=== PATIENT | male | born 1995 | race Caucasian/White ===

== ENCOUNTER 2020-11-19 02:18 | Emergency (ER) | payer MEDICAID ==
[~2020-11-19] VITALS: Ht 175.3 cm; Wt 67.0 kg
[2020-11-19 02:21] VITALS: BP 123/75
[2020-11-19 04:24] LABS: CLARITY URINE CLEAR (CLEAR); COLOR URINE YELLOW (YELLOW); KETONES URINE NEGATIVE (NEGATIVE); LEUKOCYTE ESTERASE URINE 2+ (NEGATIVE); NITRITE URINE NEGATIVE (NEGATIVE); OCCULT BLOOD URINE 3+ (NEGATIVE); PROTEIN URINE 2+ (NEGATIVE); SPECIFIC GRAVITY URINE 1.014 (1.005-1.030)
[2020-11-19] MEDS ORDERED: CEPH500T MT (04:45)
[2020-11-19] MEDS ORDERED: CEPHALEXIN 250MG CAPSULE PO ONE (04:45)
[2020-11-23 04:11] LABS: NEISSERIA GONORRHOEAE NAA Negative (Negative)
== END 2020-11-19 05:01 | disposition home or self-care (01) ==
LOC: ER 02:18
DX: N39.0 Urinary tract infection, site not specified (principal)
CPT/HCPCS: 81003; 87077; 87186; 87491; 87591; 99283

== ENCOUNTER 2023-05-31 13:48 | Emergency (ER) | payer MEDICAID ==
[~2023-05-31] VITALS: Ht 175.3 cm; Wt 72.6 kg
[~2023-05-31 13:48] MED LIST: CEPH500T MT
[2023-05-31 14:05] VITALS: O2SAT 100
[2023-05-31] MEDS ORDERED: IBUP-2029 PO (16:01)
[2023-05-31 16:45] VITALS: BP 138/78; PULSE 88; RESP 18; TEMP 98.7
== END 2023-05-31 16:45 | disposition home or self-care (01) ==
LOC: ER 13:48
DX: S62.319A Displaced fracture of base of unspecified metacarpal bone, initial encounter for closed fracture (principal); W18.39XA Other fall on same level, initial encounter; Y93.89 Activity, other specified; Y92.89 Other specified places as the place of occurrence of the external cause; Y99.8 Other external cause status
CPT/HCPCS: 29515; 73110; 73130; 99284